=== PATIENT | male | born 1995 | race Caucasian/White ===

== ENCOUNTER 2016-09-29 18:29 | Emergency (ER) | payer OTHER ==
[2016-09-29 18:39] VITALS: BP 119/67
--- NOTE | 2016-09-29 19:28 | UC ---
Throat Pain/Nasal Chip HPI - HPI Summary HPI Summary: complaint of cougn and nasal congestion intermittetn for the past 3 months pressure in face and forehead constant green mucus occasional headaches denies fever and chills denies sore throat , ear pain took some allergy medication without relief Claritin D - History of Current Complaint Chief Complaint: UCRespiratory Stated Complaint: COUGH, CONGESTION Time Seen by Provider: 09/29/16 19:22 Hx Obtained From: Patient - Allergies/Home Medications Allergies/Adverse Reactions: Allergies Allergy/AdvReac Type Severity Reaction Status Date / Time No Known Allergies Allergy Verified 09/29/16 18:40 PMH/Surg Hx/FS Hx/Imm Hx Previously Healthy: Yes - Surgical History Surgical History: None - Family History Known Family History: Negative: Cardiac Disease, Hypertension, Diabetes - Social History Occupation: Employed Full-time Lives: With Family Alcohol Use: Occasionally Substance Use Type: None Smoking Status (MU): Never Smoked Tobacco Review of Systems Constitutional: Negative Skin: Negative Eyes: Negative ENT: Nasal Discharge, Sinus Congestion, Sinus Pain/Tenderness Respiratory: Cough Cardiovascular: Negative Gastrointestinal: Negative Genitourinary: Negative Motor: Negative Neurovascular: Negative Musculoskeletal: Negative Neurological: Headache Psychological: Negative All Other Systems Reviewed And Are Negative: Yes Physical Exam Triage Information Reviewed: Yes Appearance: No Pain Distress, Well-Nourished Vital Signs: Initial Vital Signs Temp 98.6 F 09/29/16 18:32 Pulse 77 09/29/16 18:32 Resp 16 09/29/16 18:32 BP 119/67 09/29/16 18:32 Pulse Ox 98 09/29/16 18:32 Vital Signs Reviewed: Yes Eyes: Positive: Conjunctiva Clear ENT: Positive: Pharyngeal erythema, Nasal congestion, Nasal drainage, TMs normal , Other: - frontal and maxillary sinus tenderness Neck: Positive: No Lymphadenopathy Respiratory: Positive: Lungs clear, Normal breath sounds, No respiratory distress, No accessory muscle use Cardiovascular: Positive: RRR, No Murmur, Pulses Normal, Brisk Capillary Refill Abdomen Description: Positive: Nontender, Soft Bowel Sounds: Positive: Present Musculoskeletal Exam: Normal Neurological: Positive: Alert Psychological Exam: Normal Skin Exam: Normal Throat Pain/Nasal Course/Dx - Course Course Of Treatment: exam completed. will treat with doxycylcine as previous treatment with augmentin failed - Differential Dx/Diagnosis Differential Diagnosis/HQI/PQRI: Sinusitis, URI Provider Diagnoses: sinuitis Discharge - Discharge Plan Condition: Stable Disposition: HOME Prescriptions: DOXYcycline CAP(*) [DOXYcycline 100MG CAP(*)] 100 mg PO BID #20 cap Patient Education Materials: Sinusitis (ED) Referrals: No Primary Care Phys,NOPCP [Primary Care Provider] - [facility] [Outside] Additional Instructions: SINUSITIS What is Sinusitis? Sinusitis is inflammation or infection of the lining of the sinuses behind the bones in your cheeks or forehead. Sinusitis may occur following a common cold, flu, or other infection; allergies; a tooth infection that spreads to the sinuses; swimming in contaminated water; pressure changes in airplanes at high altitudes; violent sneezing or nose blowing or smoking or breathing other peoples smoke. Symptoms Might Include: Nasal Congestion Sneezing Watery eyes, eye irritation, or eye itching Headaches Pressure in the cheeks Wheezing Trouble smelling Sore throat and coughing may occur Treatment Recommendations: Take medicines as prescribed until completely gone. Drink plenty of fluids. Use saline nose spray to thin the mucous and help the sinuses drain. Use a vaporizer or humidifier. Apply warm compresses to the face or forehead several times a day for 10 to 20 minutes. Call Your Doctor or Return Here IF: Your pain increases during treatment. You develop a high temperature. You develop unusual swelling around the eyes. You have difficulty with your vision. You develop a severe headache, earache, or toothache. You develop increased fever or fever that does not respond to medication such as Tylenol?. You have difficulty breathing or catching your breath. You begin to have any other new symptoms that worry you.
== END 2016-09-29 19:45 | disposition home or self-care (01) ==
LOC: UCEAST 18:29
DX: J32.9 Chronic sinusitis, unspecified (principal)
CPT/HCPCS: 99202; G0463